=== PATIENT | female | born 1990 | race Caucasian/White ===

== ENCOUNTER 2018-12-02 07:00 | Inpatient (IN) | payer BC ==
[~2018-12-02] VITALS: Ht 157.5 cm; Wt 78.9 kg
[2018-12-02] VITALS (63 sets, daily range): BP systolic 92–138; BP diastolic 53–76
--- NOTE | 2018-12-02 06:55 | NUR ---
BERTHA CRAWLEY presented to unit via ambulation from home, accompanied by for induction of labor. BERTHA CRAWLEY weighed, gowned, voided, and to bed. EFHM and TOCO applied, VS taken. BERTHA CRAWLEY oriented to bed controls, call light, TV, heat, and A/C controls.
[2018-12-02] MEDS ORDERED: D5 LR IV SOLUTION 1,000 ML IV ONE (07:08)
--- OUTSIDE RECORDS SUMMARY | 2018-12-02 07:08 | XMS REPORT ---
Author Author SINDI AVINA [facility] Address [address] [place] [address] Care Team Providers Care Video System Repairer Name Role Phone SINDI AVINA Unavailable PROBLEMS Unknown Problems ALLERGIES No Known Allergies SOCIAL HISTORY Never Assessed PLAN OF CARE VITAL SIGNS MEDICATIONS No Known Medications RESULTS Name Result Date Reference Range URINE DRUG SCREEN (IN HOUSE) 2016-11-16 Lot # [id number] Exp date 2018 05 Control + COCAINE negative AMPH negative MTD negative THC negative OPIATE negative BENZO negative PCP negative BAR negative OXY negative MAMP negative TCA negative BUP negative MDMA negative PROCEDURES Procedure Date Ordered Result Body Site DRUG TEST PRSMV DIR OPT OBS November 16, 2016 IMMUNIZATIONS No Known Immunizations
[2018-12-02] MEDS: D5 LR IV SOLUTION 1,000 ML IV SCH ×2 (07:35→14:50)
[2018-12-02] MEDS ORDERED: OXYTOCIN/NORMAL SALINE 500 ML IV SCH ×2 (07:43→17:34)
[2018-12-02] MEDS ORDERED: WATER (STERILE) FOR INJECTION 20 ML ONE (07:44)
[2018-12-02] MEDS ORDERED: AMPICILLIN FOR IV USE 2,000 MG VIAL ONE (07:44)
[2018-12-02] MEDS ORDERED: AMPICILLIN FOR IV USE 2,000 MG in WATER (STERILE) FOR INJECTION 14.8 ML IV ONE (07:45)
[2018-12-02] MEDS ORDERED: AMPICILLIN FOR IV USE 1,000 MG in WATER (STERILE) FOR INJECTION 7.4 ML IV SCH (07:45)
--- NOTE | 2018-12-02 07:51 | History & Physical ---
History and Physical Date Seen by Provider: Dec 02, 2018 Time Seen by Provider: 07:49 This patient is a 27-year-old prima gravid white female with an EDC of 6 419 admitted now on 6 419 for induction of labor. Her history is significant for GBS positive urine during this . She said no problems with to date. She denies rupture membranes or bleeding. She denies contractions but does feel baby moving. Allergies are to Ceclor which causes a rash Medications are vitamins Medical social and surgical histories are per the antepartum record HEENT exam is normal Neck supple no lymphadenopathy no thyromegaly Abdomen is gravid soft nontender nondistended Extremities show no clubbing cyanosis. There is no Homans sign. Pelvic exam is pending Assessment and plan term at 40 weeks gestation admitted for labor induction. Patient will be induced with Pitocin and the cover of ampicillin for GBS prophylaxis. We anticipate a vaginal delivery. 39+ week gestation admitted for induction of labor with GBS positive urine Allergies and Home Medications Allergies Coded Allergies: cefaclor (Verified Allergy, Unknown, rash, 12/02/18) Patient Home Medication List Home Medication List Reviewed: Yes SOBEIDA RG MD Dec 02, 2018 07:51
[2018-12-02 07:56] LABS: BASOPHILS % (AUTO) 0 % (0-10); EOSINOPHILS # (AUTO) 0.1 10^3/uL (0.0-0.3); EOSINOPHILS % (AUTO) 1 % (0-10); HEMATOCRIT 32 % (35-52); HEMOGLOBIN 10.3 G/DL (11.5-16.0); LYMPHOCYTES # (AUTO) 1.6 X 10^3 (1.0-4.0); LYMPHOCYTES % (AUTO) 16 % (12-44); MEAN CORPUSCULAR HEMOGLOBIN 27 PG (25-34); MEAN CORPUSCULAR HGB CONC 33 G/DL (32-36); MEAN CORPUSCULAR VOLUME 82 FL (80-99); MEAN PLATELET VOLUME 10.3 FL (7.4-10.4); MONOCYTES # (AUTO) 0.8 X 10^3 (0.0-1.0); MONOCYTES % (AUTO) 8 % (0-12); NEUTROPHILS # (AUTO) 7.6 X 10^3 (1.8-7.8); NEUTROPHILS % (AUTO) 75 % (42-75); PLATELET COUNT 308 10^3/uL (130-400); RED CELL DISTRIBUTION WIDTH 14.4 % (10.0-14.5); WHITE BLOOD COUNT 10.1 10^3/uL (4.3-11.0)
[2018-12-02] MEDS ORDERED: PNV11TAB5 PO (08:32)
[2018-12-02] MEDS ORDERED: LACTATED RINGERS 1,000 ML IV ONE ×2 (10:35→14:36)
[2018-12-02] MEDS ORDERED: SUFENTA 0.6MCG/ML BUPIVA 0.125 100 ML ONE (10:47)
--- NOTE | 2018-12-02 11:12 | NUR ---
Cassandra CARVALHO CRNA here for epidural placement. Procedure explained, consent reviewed and signed by anesthesia. Questions answered to patient's satisfaction. Time out taken to verify correct patient/procedure. 1119 Patient up to side of bed, assisted into sitting position. 1121 Betadine prep done x3 and sterile drape applied. 1123 Local done, see anesthesia record. 1126 Test dose given, see anesthesia record for drug and dosage. Epidural catheter secured in place. Epidural placement complete. 1131 Assisted back into bed, monitors adjusted. Epidural dosed, see anesthesia record. Epidural of Sufenta/Bupvicaine @10cc/hr stated per pump. Patient tolerated procedure well.
[2018-12-02] MEDS ORDERED: BUPIVACAINE 0.25% 30 ML (SENSORCAINE) VIAL ONE (11:13)
[2018-12-02] MEDS ORDERED: fentaNYL INJECTION 100 MCG/2 ML AMP ONE (11:13)
[2018-12-02] MEDS ORDERED: CATHETER FLUSH 10 ML SYR IV PRN (14:45)
[2018-12-02] MEDS ORDERED: NALOXONE 0.4 MG/ML 1 ML (NARCAN) VIAL IV PRN (14:45)
[2018-12-02] MEDS ORDERED: EPIDURAL (SUFENTA 0.6MCG/ML BUPIVA 0.125%) 100 ML BAG EPI SCH (14:45)
[2018-12-02] MEDS ORDERED: LIDOCAINE/EPI 2% 1:200,00 (XYLOCAINE) 10 ML VIAL ONE (15:56)
[2018-12-02] MEDS ORDERED: MEASLES,MUMPS,RUBELLA 1 EA INJ SC ONE (17:45)
[2018-12-02] MEDS ORDERED: TETANUS,DIPTH,PERTUSS P/F (BOOSTRIX) 0.5 ML VIAL IM ONE (17:45)
[2018-12-02] MEDS ORDERED: oxyCODONE/APAP 5/325MG (PERCOCET 5) TABLET PO PRN (17:45)
[2018-12-02] MEDS ORDERED: ONDANSETRON 4 MG/2 ML (SDV) Z0FRAN IVP PRN (17:45)
[2018-12-02] MEDS ORDERED: BENZOCAINE/MENTHOL (DERMOPLAST) 56 ML CAN TP PRN (17:45)
[2018-12-02] MEDS: KETOROLAC 30 MG/ML VIAL IVP SCH (18:43)
--- NOTE | 2018-12-02 21:39 | OPERATIVE REPORT ---
DATE OF SERVICE: 12/02/2018 DELIVERY NOTE The patient delivered by term with spontaneous vaginal delivery at 40 weeks' gestation, a viable female with Apgars of 8 and 9 at 1 and 5 minutes respectively, expected weight of 7 pounds 13 ounces, time of 1646 and a cord blood gas is pending. The infant was delivered over midline. Episiotomy performed when the perineum was tearing and the patient has already sustained a left sulcus laceration. Local anesthetic was infiltrated in the perineal body to augment the epidural and then episiotomy was performed. The patient delivered with the next push. The infant was bulb suctioned on delivery of the head and again on completion of delivery, the umbilical cord was doubly clamped and the father cut the cord, the baby was passed to mom's abdomen. Cord bloods were obtained. The placenta delivered spontaneously it was normal with a 3-vessel cord. The cervix, vagina, rectum and perineum were examined and found intact, except for the midline episiotomy with a left sulcus laceration that was repaired as a single unit with a single suture of 3-0 Vicryl Rapide in the usual manner without difficulty to good hemostasis. The skin separation was all the way down to the anus, but the sphincter muscles were intact consistent with a second degree defect. Sponge and needle counts were correct on completion of the delivery and the repair. Estimated blood loss was around 250 mL. The patient tolerated the delivery and the repair well and remained in the LDR for recovery. The baby remained with the mom. Job ID: [id number] DocumentID: [id number] Dictated Date: 12/02/2018 17:09:47 Vending Machine Filler Date: 12/02/2018 21:26:40 Dictated By: SOBEIDA RG MD
[2018-12-02] MEDS: DOCUSATE SODIUM 100 MG (COLACE) CAP PO SCH (23:24)
[2018-12-02] MEDS ORDERED: IBUPROFEN 800 MG (MOTRIN) TAB PO ONE (23:27)
[2018-12-02] MEDS: IBUPROFEN 800 MG (MOTRIN) TAB PO SCH (23:45)
[2018-12-03] MEDS: KETOROLAC 30 MG/ML VIAL IVP SCH ×3 (00:48→07:15)
[2018-12-03 03:05] VITALS: BP 104/68
[2018-12-03] MEDS ORDERED: IBUPROFEN 800 MG (MOTRIN) TAB PO ONE ×2 (06:48→11:50)
[2018-12-03] MEDS: IBUPROFEN 800 MG (MOTRIN) TAB PO SCH ×4 (06:50→23:57)
--- NOTE | 2018-12-03 07:50 | NUR ---
Dr. Davison here to see pt. Plan for D/C home tomorrow. No new orders rec'd.
--- NOTE | 2018-12-03 07:58 | Progress Note-Standard ---
Standard Progress Note Progress Notes/Assess & Plan Date Seen by a Provider: Dec 03, 2018 Time Seen by a Provider: 07:57 Progress/Assessment & Plan This patient is without complaint ablating, voiding, tolerating oral intake well has good pain control. Vital Signs 12/03/18 03:05 Temp 99.0 Pulse 79 Resp 18 B/P (MAP) 104/68 (80) Pulse Ox 97 O2 Delivery Room Air Vital signs are stable. Patient is afebrile. Fundus is firm below the umbilicus nontender. Extreme show no clubbing cyanosis. No Homans sign. There is some pretibial pitting edema that is normal. Assessment and plan day number 1 status post term spontaneous vaginal delivery doing well. Plan is routine, scheduled and likely discharge home tomorrow SOBEIDA RG MD Dec 03, 2018 07:58
[2018-12-03] MEDS ORDERED: OXYC1TAB87 PO (08:02)
[2018-12-03] MEDS ORDERED: IBUP-1780 PO (08:02)
[2018-12-03] MEDS ORDERED: DOCU100C37 PO (08:02)
--- NOTE | 2018-12-03 08:03 | Discharge Instructions ---
Discharge Instructions Discharge Medications New, Converted or Re-Newed RX: RX on Chart Patient Instructions Patient Instructions: As directed Return to The Hospital For: As directed Activity & Diet Discharge Diet: No Restrictions Activity as Tolerated: No Orders-Post D/C & Referrals Follow Up Appt: Call to make follow up appt. for patient in 4 weeks. Activity Per routine post vaginal delivery instructions. Diet as tolerated Patient may shower or tub bathe as desired. SOBEIDA RG MD Dec 03, 2018 08:03
[2018-12-03 09:30] VITALS: BP 118/56
[2018-12-03] MEDS: DOCUSATE SODIUM 100 MG (COLACE) CAP PO SCH ×2 (09:33→21:23)
[2018-12-03 12:00] VITALS: BP 116/61
--- NOTE | 2018-12-03 12:00 | NUR ---
ROUTINE MOTRIN GIVEN. VSS. EXAM PERFORMED. TO NURSERY TO SEE .
--- NOTE | 2018-12-03 13:30 | NUR ---
PT HOLDING INFANT SKIN TO SKIN IN NURSERY. SEE NURSERY NOTES.
--- NOTE | 2018-12-03 13:52 | Anesthesia-Regional Post-Op ---
Regional Patient Condition Mental Status: Alert, Oriented x3 Circulation: Same as Pre-Op Headache: Absent Sensation: Full Recovery Motor Block: Absent Post Op Complications Complications None Follow Up Care/Instructions Patient Instructions None needed. Anesthesia/Patient Condition Patient is doing well, no complaints, stable vital signs, no apparent adverse anesthesia problems. No complications reported per nursing. LETY OTT CRNA Dec 03, 2018 13:51
[2018-12-03] MEDS ORDERED: DIBUCAINE (NUPERCAINAL) 1% OINT 30 GM TOP PRN (15:45)
[2018-12-03] MEDS ORDERED: WITCH HAZEL(TUCKS) 40 EA JAR TOP PRN (15:45)
--- NOTE | 2018-12-03 16:00 | NUR ---
TUCKS AND NUPERCAINAL GIVEN TO PT ALONG WITH AN ICE PACK.
[2018-12-03 18:00] VITALS: BP 110/55
--- NOTE | 2018-12-03 18:00 | NUR ---
PT HAS BEEN IN AND OUT OF THE NURSERY R/T INFANT BEING CONFINED TO NURSERY. ICE PACK GIVEN TO PT.
--- NOTE | 2018-12-03 18:45 | NUR ---
PT STATES SPOUSE LEFT TO GET FOOD.
--- NOTE | 2018-12-03 19:50 | NUR ---
pt ambulated into nsy at this time to khan with infant.
--- NOTE | 2018-12-03 21:20 | NUR ---
Pt back to room, denies needs.
[2018-12-03 23:53] VITALS: BP 81/51
--- NOTE | 2018-12-04 00:33 | NUR ---
pt aroused to go into nsy for feeding.
[2018-12-04 05:54] VITALS: BP 85/50
[2018-12-04] MEDS: IBUPROFEN 800 MG (MOTRIN) TAB PO SCH ×2 (05:54→13:30)
--- NOTE | 2018-12-04 07:37 | NUR ---
Dr. Davison here to see pt. Plan to D/C pt to [facility] today.
--- NOTE | 2018-12-04 08:00 | NUR ---
PT ambulates self to nsy to see , accompanied by S.O. No s/s of distress noted.
--- NOTE | 2018-12-04 08:04 | Progress Note-Standard ---
Standard Progress Note Progress Notes/Assess & Plan Date Seen by a Provider: Dec 04, 2018 Time Seen by a Provider: 08:03 Progress/Assessment & Plan This patient is without complaint ablating, voiding, tolerating oral intake well has good pain control. Vital Signs 12/03/18 03:05 Temp 99.0 Pulse 79 Resp 18 B/P (MAP) 104/68 (80) Pulse Ox 97 O2 Delivery Room Air Vital signs are stable. Patient is afebrile. Fundus is firm below the umbilicus nontender. Extreme show no clubbing cyanosis. No Homans sign. There is some pretibial pitting edema that is normal. Assessment and plan day number 1 status post term spontaneous vaginal delivery doing well. Plan is routine, scheduled and likely discharge home tomorrow December 04, 2018 Patient without complaint. She ambulated, voiding, tolerating oral intake well has good pain control. Vital Signs 12/04/18 05:54 Temp 97.3 Pulse 69 Resp 18 B/P (MAP) 85/50 (62) Pulse Ox 98 O2 Delivery Room Air Vital signs are stable. Patient afebrile. Fundus is firm below the umbilicus nontender. Extreme show clubbing or cyanosis. There is no Homans sign. Assessment and plan day number 2 doing well. Plan is for routine convalescence care with discharge home. If baby is not ready for discharge patient will room in SOBEIDA RG MD Dec 04, 2018 08:04
[2018-12-04] MEDS: DOCUSATE SODIUM 100 MG (COLACE) CAP PO SCH (10:25)
--- NOTE | 2018-12-04 10:25 | NUR ---
Pt resting in bed, holding . Colace given. Plan of care discussed and boarder status explained. Pt verbalizes understanding, plan to D/C to [facility] after lunch. Prescriptions given and explained at this time.
[2018-12-04 13:30] VITALS: BP 120/56
--- NOTE | 2018-12-04 17:30 | NUR ---
Discharge instructions explained to pt with copy provided to pt. Prescriptions already provided. Pt notified of follow up appt scheduled. Boarder parent status explained. Pt denies needs or concerns at this time. Verbalizes understanding of teaching and signs to verify.
--- NOTE | 2018-12-08 14:44 | Physician Query-Final Dx ---
EARNEST RUSSO 12/08/18 1444: Final Diagnosis Give Final Diagnosis Please give Final Diagnosis SOBEIDA RG MD 12/09/18 0735: Final Diagnosis Give Final Diagnosis Spontaneous vaginal delivery at 40 weeks gestation EARNEST RUSSO Dec 08, 2018 14:44 SOBEIDA RG MD Dec 09, 2018 07:35
== END 2018-12-04 17:30 | disposition home or self-care (01) | DRG 807 ==
LOC: LDRP 07:00
PROVIDERS: ADMIT Obstetrics & Gynecology; ATTEND Obstetrics & Gynecology
PROC: 10E0XZZ Delivery of Products of Conception, External Approach (ICD-10-PCS; principal; 2018-12-02)
PROC: 0W8NXZZ Division of Female Perineum, External Approach (ICD-10-PCS; 2018-12-02)
PROC: 0KQM0ZZ Repair Perineum Muscle, Open Approach (ICD-10-PCS; 2018-12-02)
PROC: 3E033VJ Introduction of Other Hormone into Peripheral Vein, Percutaneous Approach (ICD-10-PCS; 2018-12-02)
DX: O99.824 Streptococcus B carrier state complicating childbirth (principal); O70.1 Second degree perineal laceration during delivery; Z3A.40 40 weeks gestation of pregnancy; Z37.0 Single live birth
CPT/HCPCS: 36415; 85025; 86850; 86900; 86901

== ENCOUNTER 2021-01-10 04:03 | Inpatient (IN) | payer BC ==
[2021-01-10] VITALS (32 sets, daily range): BP systolic 86–138; BP diastolic 49–87
[~2021-01-10 04:03] MED LIST: DOCU100C37 PO; IBUP-1780 PO; OXYC1TAB87 PO; PNV11TAB5 PO
[2021-01-10] MEDS ORDERED: D5 LR IV SOLUTION 1,000 ML IV ONE (04:14)
[2021-01-10] MEDS ORDERED: D5 LR IV SOLUTION 1,000 ML IV SCH (04:15)
[2021-01-10] MEDS ORDERED: AMPICILLIN FOR IV USE 2,000 MG in WATER (STERILE) FOR INJECTION 14.8 ML IV SCH (04:31)
[2021-01-10 04:34] LABS: BASOPHILS % (AUTO) 0 % (0-10); EOSINOPHILS % (AUTO) 0 % (0-10); HEMATOCRIT 38 % (35-52); HEMOGLOBIN 12.9 g/dL (11.5-16.0); LYMPHOCYTES # (AUTO) 2.1 10^3/uL (1.0-4.0); LYMPHOCYTES % (AUTO) 16 % (12-44); MEAN CORPUSCULAR HEMOGLOBIN 29 pg (25-34); MEAN CORPUSCULAR HGB CONC 34 g/dL (32-36); MEAN CORPUSCULAR VOLUME 86 fL (80-99); MEAN PLATELET VOLUME 10.6 fL (9.0-12.2); MONOCYTES # (AUTO) 0.9 10^3/uL (0.0-1.0); MONOCYTES % (AUTO) 7 % (0-12); NEUTROPHILS # (AUTO) 10.6 10^3/uL (1.8-7.8); NEUTROPHILS % (AUTO) 77 % (42-75); PLATELET COUNT 261 10^3/uL (130-400); WHITE BLOOD COUNT 13.8 10^3/uL (4.3-11.0)
[2021-01-10] MEDS ORDERED: fentaNYL 2 mcg/ml BUPIVA 0.125 100 ML ONE (04:38)
[2021-01-10] MEDS ORDERED: BUPIVACAINE 0.25% 30 ML (SENSORCAINE) VIAL ONE (05:01)
[2021-01-10] MEDS ORDERED: fentaNYL INJ 100 MCG/2 ML AMP ONE (05:01)
[2021-01-10] MEDS ORDERED: NALOXONE 0.4 MG/ML 1 ML (NARCAN) VIAL IV PRN (05:30)
[2021-01-10] MEDS ORDERED: EPIDURAL (fentaNYL 2 MCG/ML BUPIVA 0.125%)100 ML BAG EPI PRN (05:30)
[2021-01-10] MEDS ORDERED: ONDANSETRON 4 MG/2 ML (SDV) Z0FRAN IV PRN (05:30)
[2021-01-10] MEDS ORDERED: diphenhydrAMINE 50 MG/ML INJ (BENADRYL) IV PRN (05:30)
[2021-01-10] MEDS ORDERED: LACTATED RINGERS 1,000 ML IV SCH (05:30)
[2021-01-10] MEDS ORDERED: CATHETER FLUSH 10 ML SYR IV SCH (06:00)
[2021-01-10] MEDS ORDERED: LIDOCAINE/EPI 2% 1:200,00 (XYLOCAINE) 20 ML VIAL ONE (07:53)
[2021-01-10] MEDS ORDERED: OXYTOCIN PRE-MIX DRIP 500 ML IV ONE (07:53)
--- NOTE | 2021-01-10 07:57 | History & Physical ---
History and Physical Date Seen by Provider: Jan 10, 2021 Time Seen by Provider: 07:55 This patient is a 30-year-old female who presented in active labor at 3 cm dilated. She was admitted she progressed spontaneously. She was allowed epidural. She now completely dilated. Her history is significant for GBS positive culture and she has been on ampicillin since admission for GBS prophylaxis. Patient denied rupture membranes or bleeding at the time of admission. Allergies Ceclor Medications are vitamins Medical social and surgical history is all per the antepartum record HEENT exam is normal Neck is supple no lymphadenopathy no thyromegaly Abdomen is gravid soft nontender nondistended Extremities show no clubbing cyanosis. There is no Homans' sign. Pelvic exam currently shows a cervix completely dilated 100% effaced 0 to +1 station vertex presentation with an intact bag AROM was performed with slightly blood-tinged fluid released Assessment and plan Term and spontaneous labor. Anticipate vaginal delivery under the protection of ampicillin for GBS Allergies and Home Medications Allergies Coded Allergies: cefaclor (Verified Allergy, Unknown, rash, 12/02/18) Home Medications Docusate Sodium 100 Mg Capsule, 100 MG PO BID Prescribed by: SOBEIDA DELANEY on 01/10/21 0803 Ibuprofen 800 Mg Tablet, 800 MG PO Q6HR Prescribed by: SOBEIDA DELANEY on 01/10/21 0803 Oxycodone HCl/Acetaminophen 1 Each Tablet, 1 TAB PO Q4H PRN for PAIN-MODERATE Prescribed by: SOBEIDA DELANEY on 01/10/21 0803 Vzt082/FA/Omega3/Dha/Fish Oil 1 Each Tab.chew, 2 EACH PO DAILY, (Reported) Patient Home Medication List Home Medication List Reviewed: Yes SOBEIDA RG MD Jan 10, 2021 07:57
[2021-01-10] MEDS ORDERED: OXYTOCIN PRE-MIX DRIP 500 ML IV SCH (08:00)
[2021-01-10] MEDS ORDERED: MEASLES,MUMPS,RUBELLA 1 EA INJ SC ONE (08:00)
[2021-01-10] MEDS ORDERED: ONDANSETRON 4 MG/2 ML (SDV) Z0FRAN IVP PRN (08:00)
[2021-01-10] MEDS ORDERED: TETANUS,DIPTH,PERTUSS P/F (BOOSTRIX) 0.5 ML VIAL IM ONE (08:00)
[2021-01-10] MEDS ORDERED: oxyCODONE/APAP 5/325MG (PERCOCET 5) TABLET PO PRN (08:00)
[2021-01-10] MEDS ORDERED: BENZOCAINE/MENTHOL (DERMOPLAST) 56 ML CAN TP PRN (08:00)
[2021-01-10] MEDS ORDERED: IBUP-1780 PO (08:03)
[2021-01-10] MEDS ORDERED: OXYC1TAB87 PO (08:03)
[2021-01-10] MEDS ORDERED: DOCU100C37 PO (08:03)
--- NOTE | 2021-01-10 08:03 | Discharge Inst-Surgical ---
Discharge Inst-Surgical Depart Medication/Instructions New, Converted or Re-Newed RX: RX on Chart Consults/Follow Up Patient Instructions: As directed Orders & Referrals Follow Up Appt: Call to make follow up appt. for patient in 4 weeks. Activity Per routine post vaginal delivery instructions. Please call in RX to patient pharmacy. Diet as tolerated Patient may shower or tub bathe as desired. Activity Activity as Tolerated: No Diet Discharge Diet: No Restrictions SOBEIDA RG MD Jan 10, 2021 08:03
[2021-01-10] MEDS ORDERED: AMPICILLIN FOR IV USE 1,000 MG in WATER (STERILE) FOR INJECTION 7.4 ML IV SCH (08:45)
[2021-01-10] MEDS: KETOROLAC 30 MG/ML VIAL IVP SCH ×2 (09:48→17:00)
--- NOTE | 2021-01-10 13:34 | OPERATIVE REPORT ---
DATE OF SERVICE: 01/10/2021 DELIVERY NOTE The patient delivered by term operative vaginal delivery, a viable female with Apgars of 9 and 10 at 1 and 5 minutes respectively, weight of 6 pounds 11 ounces, time of 08:26 and a cord blood pH that is pending. The infant was at the +4 to +5 station. Mother could not expel the fetus with maternal expulsive effort. Heart rate was under 100 and had been for 8 to 10 minutes. Rosales forceps were applied in the usual manner. The correct placement confirmed and then gentle traction with the next contraction and maternal expulsive effort delivered the baby easily over the perineum. The was bulb suctioned on delivery of the head. A single nuchal cord was easily released. The was delivered atraumatically and bulb suctioned again. The umbilical cord was doubly clamped, father cut the cord, the baby was passed to mother's abdomen. Cord bloods were obtained. The placenta delivered spontaneously Pandey. It was normal, but there did appear to be about 5% to 10% area of marginal placental abruption. The placenta was sent to pathology for permanent section. Cervix, vagina, rectum, and perineum were examined and found intact. Blood loss was around 100 mL. The patient tolerated the delivery well and recovered in the LDR. The baby remained with the mother. Job ID: [id number] DocumentID: [id number] Dictated Date: 01/10/2021 09:21:36 Scallop Dredger Date: 01/10/2021 13:33:46 Dictated By: SOBEIDA RG MD
[2021-01-10] MEDS: DOCUSATE SODIUM 100 MG (COLACE) CAP PO SCH ×2 (19:39→22:53)
[2021-01-10] MEDS: IBUPROFEN 800 MG (MOTRIN) TAB PO SCH (23:20)
[2021-01-11 04:06] VITALS: BP 100/51
[2021-01-11] MEDS: IBUPROFEN 800 MG (MOTRIN) TAB PO SCH ×2 (05:51→12:19)
--- NOTE | 2021-01-11 08:40 | Progress Note ---
Standard Progress Note Progress Notes/Assess & Plan Date Seen by a Provider: Jan 11, 2021 Time Seen by a Provider: 08:38 Progress/Assessment & Plan This patient is without complaint. She is ambulating, voiding, tolerating oral intake well has good pain control. Patient denies headache, denies shortness of breath, denies nausea vomiting, and denies chest pain. Vital Signs Date Time Temp Pulse Resp B/P (MAP) Pulse Ox O2 Delivery O2 Flow Rate FiO2 01/11/21 04:06 36.3 58 18 100/51 (67) Room Air 01/10/21 23:35 36.1 71 20 104/58 (73) Room Air 01/10/21 19:59 36.4 79 20 115/55 (75) 98 Room Air 01/10/21 17:00 36.4 79 20 138/87 (104) Room Air 01/10/21 11:57 36.6 68 18 108/55 (72) 96 Room Air 01/10/21 11:25 81 18 93/54 (67) 01/10/21 10:55 97 18 108/60 (76) 01/10/21 10:24 60 18 97/52 (67) 01/10/21 09:51 36.8 01/10/21 09:46 66 18 116/59 (78) 01/10/21 09:31 78 18 109/53 (71) 01/10/21 09:17 36.8 82 18 125/59 (81) 01/10/21 09:01 65 18 103/58 (73) 01/10/21 08:46 36.7 73 18 109/58 (75) Room Air 01/10/21 08:40 36.9 75 18 110/49 (69) Room Air I & O 01/11/21 06:59 Intake Total 1000 ml Balance 1000 ml Vital signs are stable. Patient is afebrile. Fundus is firm below the umbilicus and nontender. Extremities show no clubbing or cyanosis. There is no Homans' sign. Assessment and plan Post day #1 status post term operative vaginal delivery of a viable female . Patient is doing well and will have routine convalescent care. Final Diagnosis 39-week operative vaginal delivery SOBEIDA RG MD Jan 11, 2021 08:40
[2021-01-11] MEDS ORDERED: OXYC1TAB87 PO (08:43)
[2021-01-11] MEDS ORDERED: IBUP-1780 PO (08:43)
[2021-01-11] MEDS ORDERED: DCS100C PO (08:43)
[2021-01-11 10:05] VITALS: BP 110/58
[2021-01-11] MEDS: DOCUSATE SODIUM 100 MG (COLACE) CAP PO SCH (10:05)
--- NOTE | 2021-01-11 13:48 | Anesthesia-Regional Post-Op ---
Regional Patient Condition Mental Status: Alert, Oriented x3 Circulation: Same as Pre-Op Headache: Absent Sensation: Full Recovery Motor Block: Absent Post Op Complications Complications None Follow Up Care/Instructions Patient Instructions None needed. Anesthesia/Patient Condition Patient is doing well, no complaints, stable vital signs, no apparent adverse anesthesia problems. No complications reported per nursing. MUMTAZ GARIBAY CRNA Jan 11, 2021 13:48
[2021-01-15] MEDS ORDERED: IBUPROFEN 800 MG (MOTRIN) TAB PO SCH (08:00)
== END 2021-01-11 14:17 | disposition home or self-care (01) | DRG 807 ==
LOC: WSo 04:03 → LDRP 04:04 → WSo 04:11 → LDRP 04:12
PROVIDERS: ADMIT Obstetrics & Gynecology; ATTEND Obstetrics & Gynecology
PROC: 10E0XZZ Delivery of Products of Conception, External Approach (ICD-10-PCS; principal; 2021-01-10)
PROC: 10907ZC Drainage of Amniotic Fluid, Therapeutic from Products of Conception, Via Natural or Artificial Opening (ICD-10-PCS; 2021-01-10)
DX: O99.824 Streptococcus B carrier state complicating childbirth (principal); Z37.0 Single live birth; Z3A.39 39 weeks gestation of pregnancy
CPT/HCPCS: 36415; 85025; 86780; 86850; 86900; 86901; 99212